=== PATIENT | female | born 1985 | race Two or more races ===

== ENCOUNTER 2023-12-17 21:04 | Emergency (ER) | payer MEDICAID, OTHER ==
[~2023-12-17] VITALS: Ht 152.4 cm; Wt 78.4 kg
[2023-12-17 21:30] VITALS: BP 137/85; PULSE 66; RESP 16; TEMP 98
[2023-12-17] MEDS ORDERED: MUPI2OIN2 EX (22:38)
[2023-12-17] MEDS ORDERED: CEPH500C PO (22:38)
[2023-12-17] MEDS ORDERED: IBUP1TAB5 PO (22:38)
[2023-12-17 22:57] VITALS: O2SAT 99
[2023-12-17] MEDS: TETANUS-DIPTH-ACEL PERTUSSIS 0.5ML SYR Tdap IM ONE (23:17)
[2023-12-17] MEDS: NEOMYCIN-BACITRACIN-POLYM UNITDOSE PKG TOP OINT TOP ONE (23:18)
== END 2023-12-17 23:24 | disposition home or self-care (01) ==
LOC: ER 21:04
DX: S61.012A Laceration without foreign body of left thumb without damage to nail, initial encounter (principal); W26.0XXA Contact with knife, initial encounter; Y93.G1 Activity, food preparation and clean up; Y92.89 Other specified places as the place of occurrence of the external cause; Y99.8 Other external cause status
CPT/HCPCS: 12002; 90471; 90715